=== PATIENT | female | born 1990 | race African-American/Black ===

== ENCOUNTER 2017-10-30 16:42 | Emergency (ER) | payer OTHER ==
[~2017-10-30] VITALS: Ht 167.6 cm; Wt 93.1 kg
[2017-10-30] MEDS ORDERED: LORazepam 1MG TABLET ONE (17:20)
[2017-10-30] MEDS ORDERED: CEFTRIAXONE 250 MG ONE (17:20)
[2017-10-30] MEDS ORDERED: AZITHROMYCIN 500 MG TABLET ONE (17:21)
[2017-10-30] MEDS ORDERED: LORazepam 1MG TABLET PO ONE (17:30)
[2017-10-30] MEDS ORDERED: CEFTRIAXONE 250 MG IM ONE (17:30)
[2017-10-30] MEDS ORDERED: AZITHROMYCIN 500 MG TABLET PO ONE (17:30)
[2017-10-30 18:40] VITALS: BP 105/80
== END 2017-10-30 18:59 | disposition home or self-care (01) ==
LOC: ED 17:25
DX: T76.21XA Adult sexual abuse, suspected, initial encounter (principal); Y92.89 Other specified places as the place of occurrence of the external cause
CPT/HCPCS: 96372; 99283; J0696